=== PATIENT | female | born 1960 | race Caucasian/White ===

== ENCOUNTER → 2017-09-25 | Outpatient (CLI) | payer OTHER ==
[2017-09-25 07:44] LABS: ABSOLUTE EOSINOPHILS 0.1 thou/uL (0.0-0.7); ABSOLUTE LYMPHOCYTES 1.6 thou/uL (0.8-5.3); ABSOLUTE MONOCYTES 0.7 thou/uL (0.0-1.2); ABSOLUTE NEUTROPHILS 3.4 thou/uL (1.6-8.1); BASOPHILS 0.6 %; EOSINOPHILS 1.7 %; HEMATOCRIT 40.2 % (37.0-47.0); HEMOGLOBIN 13.3 gm/dL (12.0-15.0); LYMPHOCYTES 27.8 %; MCH 27.6 pg (26.0-34.0); MCHC 33.1 g/dL (28.0-37.0); MCV 83.5 fL (80.0-100.0); MONOCYTES 12.2 %; MPV 8.1 fl. (7.2-11.1); NUCLEATED RBCS 0 /100WBC; PLATELET COUNT* 213 thou/uL (150-400); POLYS 57.7 %; RBC 4.81 mil/uL (4.20-5.00); RDW-CV 13.9 % (10.5-14.5); WBC 5.9 thou/uL (4.0-11.0)
[2017-09-25 07:54] LABS: ALBUMIN 3.8 g/dL (3.4-5.0); ALKALINE PHOSPHATASE 59 U/L (46-116); ANION GAP 10 mmol/L (7-16); BUN 28 mg/dL (7-18); CALCIUM 9.2 mg/dL (8.5-10.1); CHLORIDE 105 mmol/L (98-107); CHOLESTEROL 158 mg/dL (<200); CO2 25 mmol/L (21-32); CREATININE 1.1 mg/dL (0.6-1.3); GLUCOSE 128 mg/dL (70-99); HDL CHOLESTEROL 44 mg/dL (>40); LDL CHOLESTEROL 64 mg/dL (<100); POTASSIUM 3.7 mmol/L (3.5-5.1); SGOT 17 U/L (15-37); SGPT 23 U/L (30-65); SODIUM 140 mmol/L (136-145); TC:HDL 3.6 Ratio (Not establshd); TOTAL BILIRUBIN 0.5 mg/dL (<0.1-1.0); TRIGLYCERIDE 250 mg/dL (<150); VLDL 50 mg/dL (<40)
[2017-09-25 07:57] LABS: SERUM ASSESSMENT Clear
[2017-09-25 22:09] LABS: GLYCOHEMOGLOBIN (HGB A1C) 5.9 % (4.8-5.6)
== END ==
LOC: M.LAB 07:28
PROVIDERS: Family Medicine
DX: I10 Essential (primary) hypertension (principal); E78.2 Mixed hyperlipidemia; K21.9 Gastro-esophageal reflux disease without esophagitis; E11.9 Type 2 diabetes mellitus without complications

== ENCOUNTER → 2018-01-14 | Outpatient (CLI) | payer OTHER | LOC: M.RAD 09:39 | DX: Z12.31 Encounter for screening mammogram for malignant neoplasm of breast (principal) ==

== ENCOUNTER → 2018-05-26 | Outpatient (CLI) | payer OTHER ==
[2018-05-26 11:26] LABS: ABSOLUTE BASOPHILS 0.1 thou/uL (0.0-0.2); ABSOLUTE EOSINOPHILS 0.2 thou/uL (0.0-0.7); ABSOLUTE LYMPHOCYTES 1.5 thou/uL (0.8-5.3); ABSOLUTE MONOCYTES 0.6 thou/uL (0.0-1.2); ABSOLUTE NEUTROPHILS 2.8 thou/uL (1.6-8.1); BASOPHILS 1.3 %; EOSINOPHILS 3.2 %; HEMATOCRIT 42.4 % (37.0-47.0); HEMOGLOBIN 13.9 gm/dL (12.0-15.0); LYMPHOCYTES 28.8 %; MCH 27.5 pg (26.0-34.0); MCHC 32.8 g/dL (28.0-37.0); MCV 83.9 fL (80.0-100.0); MONOCYTES 12.1 %; MPV 8.2 fl. (7.2-11.1); NUCLEATED RBCS 0 /100WBC; PLATELET COUNT* 260 thou/uL (150-400); POLYS 54.6 %; RBC 5.06 mil/uL (4.20-5.00); RDW-CV 13.8 % (10.5-14.5); WBC 5.1 thou/uL (4.0-11.0)
[2018-05-26 13:40] LABS: ALBUMIN 3.8 g/dL (3.4-5.0); ALKALINE PHOSPHATASE 68 U/L (46-116); ANION GAP 9 mmol/L (7-16); BUN 24 mg/dL (7-18); CALCIUM 9.5 mg/dL (8.5-10.1); CHLORIDE 103 mmol/L (98-107); CHOLESTEROL 216 mg/dL (<200); CO2 27 mmol/L (21-32); CREATININE 1.2 mg/dL (0.6-1.3); GLUCOSE 121 mg/dL (70-99); HDL CHOLESTEROL 43 mg/dL (>40); LDL CHOLESTEROL 109 mg/dL (<100); POTASSIUM 4.1 mmol/L (3.5-5.1); SERUM ASSESSMENT Clear; SGOT 24 U/L (15-37); SGPT 30 U/L (30-65); SODIUM 139 mmol/L (136-145); TOTAL BILIRUBIN 0.5 mg/dL (<0.1-1.0); TOTAL PROTEIN 7.1 g/dL (6.4-8.2); TRIGLYCERIDE 322 mg/dL (<150); VLDL 64 mg/dL (<40)
[2018-05-26 23:08] LABS: GLYCOHEMOGLOBIN (HGB A1C) 6.2 % (4.8-5.6)
== END ==
LOC: M.LAB 11:03
PROVIDERS: Family Medicine
DX: I10 Essential (primary) hypertension (principal); E11.9 Type 2 diabetes mellitus without complications; E78.2 Mixed hyperlipidemia

== ENCOUNTER 2018-11-05 22:13 | Emergency (ER) | payer OTHER ==
[~2018-11-05] VITALS: Ht 165.1 cm; Wt 108.9 kg
[2018-11-05] MEDS ORDERED: LISINOPRIL20 MG PO (22:40)
[2018-11-05] MEDS ORDERED: PIOGLITAZONE15 MG (22:40)
[2018-11-05] MEDS ORDERED: LASIX 40 MG TAB40 M2 PO (22:40)
[2018-11-05] MEDS ORDERED: PROCARDIA XL60 MG PO (22:40)
[2018-11-05] MEDS ORDERED: ATENOLOL 100MG100 MG PO (22:40)
[2018-11-05] MEDS ORDERED: IMVEXXY10 MCG (22:41)
[2018-11-06] MEDS ORDERED: ZOFRAN ODT4 MG PO (01:03)
[2018-11-06 01:08] VITALS: BP 122/74
== END 2018-11-06 01:08 | disposition home or self-care (01) ==
LOC: M.ERS 22:13
DX: T38.5X1A Poisoning by other estrogens and progestogens, accidental (unintentional), initial encounter (principal); I10 Essential (primary) hypertension; E11.9 Type 2 diabetes mellitus without complications; Y92.89 Other specified places as the place of occurrence of the external cause

== ENCOUNTER → 2018-11-13 | Outpatient (CLI) | payer OTHER ==
[~2018-11-13] MED LIST: ATENOLOL 100MG100 MG PO; IMVEXXY10 MCG; LASIX 40 MG TAB40 M2 PO; LISINOPRIL20 MG PO; PIOGLITAZONE15 MG; PROCARDIA XL60 MG PO; ZOFRAN ODT4 MG PO
[2018-11-13 08:13] LABS: ABSOLUTE EOSINOPHILS 0.1 thou/uL (0.0-0.7); ABSOLUTE LYMPHOCYTES 1.2 thou/uL (0.8-5.3); ABSOLUTE MONOCYTES 0.7 thou/uL (0.0-1.2); ABSOLUTE NEUTROPHILS 2.8 thou/uL (1.6-8.1); BASOPHILS 0.6 %; EOSINOPHILS 2.1 %; HEMATOCRIT 39.5 % (37.0-47.0); HEMOGLOBIN 13.2 gm/dL (12.0-15.0); LYMPHOCYTES 24.9 %; MCH 28.4 pg (26.0-34.0); MCHC 33.5 g/dL (28.0-37.0); MCV 84.9 fL (80.0-100.0); MONOCYTES 13.9 %; MPV 8.3 fl. (7.2-11.1); NUCLEATED RBCS 0 /100WBC; PLATELET COUNT* 225 thou/uL (150-400); POLYS 58.5 %; RBC 4.65 mil/uL (4.20-5.00); RDW-CV 13.6 % (10.5-14.5); WBC 4.8 thou/uL (4.0-11.0)
[2018-11-13 08:20] LABS: ALBUMIN 3.7 g/dL (3.4-5.0); ALKALINE PHOSPHATASE 62 U/L (46-116); ANION GAP 10 mmol/L (7-16); BUN 45 mg/dL (7-18); CALCIUM 9.4 mg/dL (8.5-10.1); CHLORIDE 106 mmol/L (98-107); CHOLESTEROL 182 mg/dL (<200); CO2 25 mmol/L (21-32); CREATININE 1.3 mg/dL (0.6-1.3); GLUCOSE 127 mg/dL (70-99); HDL CHOLESTEROL 43 mg/dL (>40); LDL CHOLESTEROL 89 mg/dL (<100); POTASSIUM 4.4 mmol/L (3.5-5.1); SGOT 17 U/L (15-37); SGPT 28 U/L (30-65); SODIUM 141 mmol/L (136-145); TC:HDL 4.2 Ratio (Not establshd); TOTAL BILIRUBIN 0.3 mg/dL (<0.1-1.0); TOTAL PROTEIN 7.2 g/dL (6.4-8.2); TRIGLYCERIDE 251 mg/dL (<150); VLDL 50 mg/dL (<40)
[2018-11-13 08:22] LABS: SERUM ASSESSMENT Clear
[2018-11-14 09:07] LABS: GLYCOHEMOGLOBIN (HGB A1C) 6.1 % (4.8-5.6)
== END ==
LOC: M.LAB 07:43
PROVIDERS: Family Medicine
DX: E11.9 Type 2 diabetes mellitus without complications (principal); I10 Essential (primary) hypertension; E78.5 Hyperlipidemia, unspecified

== ENCOUNTER 2019-01-02 10:24 | Emergency (ER) | payer OTHER ==
[~2019-01-02] VITALS: Ht 162.6 cm; Wt 113.4 kg
[2019-01-02] MEDS ORDERED: NAPROSYN500 MG PO (11:54)
[2019-01-02] MEDS ORDERED: ROBAXIN 750 MG750 MG PO (11:54)
[2019-01-02] MEDS ORDERED: ACETAMINOPHEN-1 EAC1 PO (11:54)
[2019-01-02 12:54] VITALS: BP 134/98
== END 2019-01-02 12:55 | disposition home or self-care (01) ==
LOC: M.ERS 10:24
DX: R51 Headache (principal); M54.2 Cervicalgia; R10.2 Pelvic and perineal pain; I10 Essential (primary) hypertension; E11.9 Type 2 diabetes mellitus without complications; Z79.899 Other long term (current) drug therapy; W07.XXXA Fall from chair, initial encounter; Y93.89 Activity, other specified; Y92.89 Other specified places as the place of occurrence of the external cause; Y99.8 Other external cause status

== ENCOUNTER → 2019-03-20 | Outpatient (CLI) | payer OTHER ==
[~2019-03-20] MED LIST changes: +ACETAMINOPHEN-1 EAC1 PO; +NAPROSYN500 MG PO; +ROBAXIN 750 MG750 MG PO
== END ==
LOC: M.RAD 10:00
DX: Z12.31 Encounter for screening mammogram for malignant neoplasm of breast (principal)

== ENCOUNTER → 2019-05-25 | Outpatient (CLI) | payer OTHER ==
[2019-05-25 07:59] LABS: ABSOLUTE BASOPHILS 0.1 thou/uL (0.0-0.2); ABSOLUTE EOSINOPHILS 0.1 thou/uL (0.0-0.7); ABSOLUTE LYMPHOCYTES 1.4 thou/uL (0.8-5.3); ABSOLUTE MONOCYTES 0.7 thou/uL (0.0-1.2); ABSOLUTE NEUTROPHILS 2.8 thou/uL (1.6-8.1); BASOPHILS 1.2 %; EOSINOPHILS 2.2 %; HEMATOCRIT 39.2 % (37.0-47.0); HEMOGLOBIN 13.2 gm/dL (12.0-15.0); LYMPHOCYTES 28.3 %; MCH 28.5 pg (26.0-34.0); MCHC 33.8 g/dL (28.0-37.0); MCV 84.4 fL (80.0-100.0); MONOCYTES 13.8 %; MPV 7.4 fl. (7.2-11.1); NUCLEATED RBCS 0 /100WBC; PLATELET COUNT* 241 thou/uL (150-400); POLYS 54.5 %; RBC 4.64 mil/uL (4.20-5.00); RDW-CV 13.6 % (10.5-14.5); WBC 5.1 thou/uL (4.0-11.0)
[2019-05-25 08:02] LABS: URINE BILIRUBIN NEGATIVE (Negative); URINE BLOOD NEGATIVE (Negative); URINE CLARITY CLEAR; URINE COLOR YELLOW; URINE GLUCOSE-RANDOM NEGATIVE (Negative); URINE KETONES NEGATIVE (Negative); URINE LEUKOCYTES NEGATIVE (Negative); URINE NITRITE NEGATIVE (Negative); URINE PROTEIN NEGATIVE (Negative); URINE SPECIFIC GRAVITY 1.015 (1.005-1.030); URINE UROBILINOGEN 0.2 E.U./dl (0.2-1.0)
[2019-05-25 08:24] LABS: ALBUMIN 3.9 g/dL (3.4-5.0); ALKALINE PHOSPHATASE 74 U/L (46-116); ANION GAP 11 mmol/L (7-16); BUN 33 mg/dL (7-18); CALCIUM 8.7 mg/dL (8.5-10.1); CHLORIDE 103 mmol/L (98-107); CHOLESTEROL 229 mg/dL (<200); CO2 27 mmol/L (21-32); CREATININE 1.5 mg/dL (0.6-1.3); GLUCOSE 120 mg/dL (70-99); HDL CHOLESTEROL 31 mg/dL (>40); LDL CHOLESTEROL ND mg/dL (<100); POTASSIUM 4.1 mmol/L (3.5-5.1); SGOT 18 U/L (15-37); SGPT 28 U/L (30-65); SODIUM 141 mmol/L (136-145); TC:HDL 7.4 Ratio (Not establshd); TOTAL BILIRUBIN 0.5 mg/dL (<0.1-1.0); TRIGLYCERIDE 656 mg/dL (<150); VLDL 131 mg/dL (<40)
[2019-05-25 08:28] LABS: SERUM ASSESSMENT Slight Lipemia
[2019-05-25 23:06] LABS: GLYCOHEMOGLOBIN (HGB A1C) 5.9 % (4.8-5.6)
== END ==
LOC: M.LAB 07:38
PROVIDERS: Family Medicine
DX: E11.9 Type 2 diabetes mellitus without complications (principal); I10 Essential (primary) hypertension; E78.5 Hyperlipidemia, unspecified; Z68.41 Body mass index [BMI] 40.0-44.9, adult

== ENCOUNTER → 2019-09-01 | Outpatient (CLI) | payer OTHER ==
--- NOTE | 2019-09-01 10:57 | 2DMMODE ---
[place] [address] 2 D/M-MODE ECHOCARDIOGRAM Name: MADDISON PECK Room: [facility]#: [id number] Admission: 09/01/19 Attend Phys: Benji Miranda, Discharge: Date of : 56 Date of Service: 09/01/19 1055 Report #: [id number] THIS REPORT FOR: cc: Argelia Cheema Maggie M. DO Liston, Michael J. MD [facility] ~ APPROVED REPORT Study performed: 09/01/2019 07:54:44 EXAM: Comprehensive 2D, Doppler, and color-flow Echocardiogram BSA: 2.21 HR: 90 bpm BP: 130/90 mmHg Other Information Study Quality: Fair Indications Atrial Fibrillation 2D Dimensions IVSd: 12.54 (7-11mm) LVOT Diam: 18.97 (18-24mm) LVDd: 46.71 mm PWd: 10.94 (7-11mm) Ascending Ao: 34.73 (22-36mm) LVDs: 32.78 (25-40mm) Aortic Root: 28.29 mm Volumes Left Atrial Volume (Systole) LA ESV Index: 27.30 mL/m2 Aortic Valve AoV Peak Anthony.: 1.38 m/s AO Peak Gr.: 7.66 mmHg LVOT Max P.96 mmHg AO Mean Gr.: 4.19 mmHg LVOT Mean P.47 mmHg LVOT Max V: 0.86 m/s AO V2 VTI: 27.01 cm LVOT Mean V: 0.56 m/s SHANE (VTI): 1.71 cm2 LVOT V1 VTI: 16.38 cm Mitral Valve MV Decel. Time: 122.72 ms MV PHT: 35.59 [place] [address] 2 D/M-MODE ECHOCARDIOGRAM Name: MADDISON PECK Room: [facility]#: [id number] Admission: 09/01/19 Attend Phys: Benji Miranda, Discharge: Date of : 56 Date of Service: 09/01/19 1055 Report #: [id number] MVA (PHT): 6.18 cm2 TDI Medial E' Anthony.: 0.11 m/s Lateral E' Anthony.: 0.11 m/s Pulmonary Valve PV Peak Anthony.: 0.81 m/s PV Peak Gr.: 2.63 mmHg Tricuspid Valve RAP Estimate: 20.00 mmHg TR Peak Gr.: 24.62 mmHg RVSP: 44.62 mmHg PA Pressure: 44.62 mmHg Left Ventricle The left ventricle is normal size. There is normal LV segmental wall motion. There is normal left ventricular wall thickness. Left ventricular systolic function is normal. LVEF is 60-65%. This study is not technically sufficient to allow evaluation of the LV diastolic function due to atrial fibrillation. Right Ventricle The right ventricle is normal size. The right ventricular systolic function is normal. Atria The left atrium size is normal. The right atrium size is normal. Aortic Valve The Aortic valve is sclerotic. Trace aortic regurgitation. There is no aortic valvular stenosis. Mitral Valve There is mitral annular calcification. Trace mitral regurgitation. No evidence of mitral valve stenosis. Tricuspid Valve The tricuspid valve is normal in structure. Mild tricuspid regurgitation. No pulmonary hypertension. Pulmonic Valve The pulmonary valve is normal in structure. There is no pulmonic valvular regurgitation[place] [address] 2 D/M-MODE ECHOCARDIOGRAM Name: MADDISON PECK Room: [facility]#: [id number] Admission: 09/01/19 Attend Phys: Benji Miranda, Discharge: Date of : 56 Date of Service: 09/01/19 1055 Report #: [id number] The aortic root is normal in size. IVC is dilated and collapses >50% with inspiration. Pericardium There is no pericardial effusion. <Conclusion> The left ventricle is normal size. There is normal left ventricular wall thickness. Left ventricular systolic function is normal. LVEF is 60-65%. This study is not technically sufficient to allow evaluation of the LV diastolic function due to atrial fibrillation. Trace aortic regurgitation. Trace mitral regurgitation. Mild tricuspid regurgitation. No pulmonary hypertension. IVC is dilated and collapses >50% with inspiration. <ELECTRONICALLY SIGNED> By: Benji Miranda MD, FACC 09/01/19 1055 54 54 Benji Miranda MD, FACC /INF
== END ==
LOC: M.CRD 07:57
DX: I08.3 Combined rheumatic disorders of mitral, aortic and tricuspid valves (principal); I48.19 Other persistent atrial fibrillation

== ENCOUNTER → 2019-10-06 | Outpatient (CLI) | payer OTHER ==
[2019-10-06] VITALS (8 sets, daily range): BP systolic 102–136; BP diastolic 45–81
[~2019-10-06] MED LIST changes: +ELIQUIS5 MG PO; +FLECAINIDE ACET50 M2 PO
[2019-10-06 10:18] LABS: HEMATOCRIT 38.3 % (37.0-47.0); HEMOGLOBIN 12.7 gm/dL (12.0-15.0); MCH 27.9 pg (26.0-34.0); MCHC 33.2 g/dL (28.0-37.0); RBC 4.56 mil/uL (4.20-5.00); WBC 5.5 thou/uL (4.0-11.0)
[2019-10-06 10:27] LABS: CALCIUM 9.2 mg/dL (8.5-10.1); CREATININE 1.5 mg/dL (0.6-1.3); POTASSIUM 4.2 mmol/L (3.5-5.1)
[2019-10-06 10:32] LABS: TOTAL BILIRUBIN 0.5 mg/dL (<0.1-1.0); TOTAL PROTEIN 7.2 g/dL (6.4-8.2)
--- NOTE | 2019-10-06 15:32 | EKG ---
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1960 Requested By: Benji Miranda Order Number: [id number] Ricardo MD: Bayron Mayer Measurements Intervals [place] Rate: 55 P: 41 AK: 179 QRS: 34 QRSD: 98 T: 33 QT: 430 QTc: 412 Interpretive Statements Sinus rhythm Probable left atrial enlargement Abnormal R-wave progression, early transition No previous ECG available for comparison Electronically Signed On 10-06-2019 15:30:31 CDT by Bayron Mayer [email or web address] <ELECTRONICALLY SIGNED> By: Bayron Mayer MD, [facility] 10/06/19 1530 1057 1057 Bayron Mayer MD, FAC /EPI
--- NOTE | 2019-10-08 16:12 | CARD ---
[address] [address] CARDIAC CATH REPORT Name: MADDISON PECK Room: [facility]#: [id number] Admission: 10/06/19 Attend Phys: Benji Miranda MD Discharge: Date of : 56 Report #: [id number] THIS REPORT FOR: //name// cc: Argelia Cheema Maggie M. DO ~ CC: Argelia Veliz DATE OF SERVICE: 10/06/2019 PROCEDURE: DC cardioversion. INDICATION: Persistent atrial fibrillation. DESCRIPTION OF PROCEDURE: After informed consent was obtained, the patient was brought to the cardiac holding area. The patient was given 75 mg of fentanyl and 3 mg of Versed intravenously for conscious sedation. Once the patient was adequately sedated, she was cardioverted from atrial fibrillation to normal sinus rhythm with a single biphasic shock of 300 joules. The patient tolerated the procedure well without complication. IMPRESSION: 1. Persistent atrial fibrillation. 2. Successful direct current cardioversion to sinus rhythm. <ELECTRONICALLY SIGNED> By: Benji Miranda MD, [facility] 10/08/19 1612 1021 [id number] Miranda MD, FACC /nt
== END | disposition home or self-care (01) ==
LOC: M.CL 09:16
PROVIDERS: Internal Medicine Cardiovascular Disease
DX: I48.19 Other persistent atrial fibrillation (principal); Z79.899 Other long term (current) drug therapy; Z79.01 Long term (current) use of anticoagulants

== ENCOUNTER → 2019-10-23 | Outpatient (CLI) | payer OTHER ==
[2019-10-23 11:01] LABS: URINE BILIRUBIN NEGATIVE (Negative); URINE BLOOD NEGATIVE (Negative); URINE CLARITY CLEAR; URINE COLOR STRAW; URINE GLUCOSE-RANDOM NEGATIVE (Negative); URINE KETONES NEGATIVE (Negative); URINE LEUKOCYTES-REFLEX NEGATIVE (Negative); URINE NITRITE-REFLEX NEGATIVE (Negative); URINE PROTEIN NEGATIVE (Negative); URINE SPECIFIC GRAVITY 1.015 (1.005-1.030); URINE UROBILINOGEN 0.2 E.U./dl (0.2-1.0)
[2019-10-23 11:11] LABS: ALKALINE PHOSPHATASE 44 U/L (46-116); ANION GAP 5 mmol/L (7-16); BUN 45 mg/dL (7-18); CALCIUM 9.3 mg/dL (8.5-10.1); CHLORIDE 103 mmol/L (98-107); CHOLESTEROL 144 mg/dL (<200); CO2 32 mmol/L (21-32); CREATININE 1.8 mg/dL (0.6-1.3); GLUCOSE 98 mg/dL (70-99); HDL CHOLESTEROL 55 mg/dL (>40); LDL CHOLESTEROL 68 mg/dL (<100); SGOT 19 U/L (15-37); SGPT 21 U/L (30-65); SODIUM 140 mmol/L (136-145); TC:HDL 2.6 Ratio (Not establshd); TOTAL BILIRUBIN 0.4 mg/dL (<0.1-1.0); TOTAL PROTEIN 7.6 g/dL (6.4-8.2); TRIGLYCERIDE 105 mg/dL (<150); VLDL 21 mg/dL (<40)
[2019-10-23 11:12] LABS: SERUM ASSESSMENT Clear
[2019-10-23 23:08] LABS: GLYCOHEMOGLOBIN (HGB A1C) 6.1 % (4.8-5.6)
== END ==
LOC: M.LAB 10:30
PROVIDERS: Family Medicine
DX: E11.9 Type 2 diabetes mellitus without complications (principal); R89.9 Unspecified abnormal finding in specimens from other organs, systems and tissues

== ENCOUNTER → 2019-11-12 | Outpatient (CLI) | payer OTHER | LOC: M.CT 08:00 | PROVIDERS: ATTEND Internal Medicine Cardiovascular Disease | DX: Z13.6 Encounter for screening for cardiovascular disorders (principal) ==

== ENCOUNTER → 2019-11-30 | Outpatient (CLI) | payer OTHER ==
[2019-11-30 08:38] LABS: ABSOLUTE BASOPHILS 0.1 thou/uL (0.0-0.2); ABSOLUTE EOSINOPHILS 0.1 thou/uL (0.0-0.7); ABSOLUTE LYMPHOCYTES 1.5 thou/uL (0.8-5.3); ABSOLUTE MONOCYTES 0.8 thou/uL (0.0-1.2); EOSINOPHILS 2.5 %; HEMATOCRIT 40.5 % (37.0-47.0); HEMOGLOBIN 13.4 gm/dL (12.0-15.0); LYMPHOCYTES 27.5 %; MCH 28.1 pg (26.0-34.0); MCHC 33.2 g/dL (28.0-37.0); MCV 84.5 fL (80.0-100.0); MONOCYTES 14.2 %; MPV 7.5 fl. (7.2-11.1); NUCLEATED RBCS 0 /100WBC; PLATELET COUNT* 264 thou/uL (150-400); POLYS 54.8 %; RBC 4.79 mil/uL (4.20-5.00); RDW-CV 13.9 % (10.5-14.5); WBC 5.5 thou/uL (4.0-11.0)
[2019-11-30 09:08] LABS: TOTAL PROTEIN 7.6 g/dL (6.4-8.2)
[2019-11-30 09:09] LABS: ALBUMIN 4.3 g/dL (3.4-5.0); CALCIUM 9.4 mg/dL (8.5-10.1); CREATININE 1.9 mg/dL (0.6-1.3); POTASSIUM 3.9 mmol/L (3.5-5.1); TOTAL BILIRUBIN 0.5 mg/dL (<0.1-1.0)
== END ==
LOC: M.LAB 07:00 → M.CT 08:00 → M.LAB 08:16
PROVIDERS: ATTEND Internal Medicine Cardiovascular Disease
DX: I48.91 Unspecified atrial fibrillation (principal)

== ENCOUNTER → 2019-12-30 | Outpatient (CLI) | payer OTHER ==
--- NOTE | 2020-02-19 12:11 | SLEEP ---
[address] [address] SLEEP STUDY REPORT Name: BRADY PECKMY Austin Room: [facility]#: [id number] Admission: 12/30/19 Attend Phys: Argelia Cheema DO Discharge: Date of : 56 Report #: [id number] THIS REPORT FOR: //name// CC: Argelia Cheema This study has been reviewed in its entirety by a board certified sleep specialist DATE OF SERVICE: 01/01/2020 INDICATION FOR SLEEP STUDY: Excessive daytime sleepiness. TYPE OF SLEEP STUDY PERFORMED: Home sleep study. INTERPRETATION: Total duration of the study is 424 minutes. During this time period, we recorded multiple sleep related respiratory events. These included, 446 obstructive apneas in addition to 172 hypopneas. There were no mixed apneas or central apneas recorded. The overall apnea-hypopnea index was 88.3 consistent with severe obstructive sleep apnea. Body position data indicates the patient was lying on the right side throughout this sleep study. We also recorded multiple desaturations. The patient's O2 saturation was less than 90% for 217 minutes out of which 117 minutes were spent an O2 saturation less than 85%. Mean heart rate was 67. Upon review of the tracings from the pulse oximetry, it is noted that desaturations occurred in 3 distinct episodes during the night. This is consistent with a REM associated obstructive sleep apnea. IMPRESSION: 1. Severe obstructive sleep apnea with an apnea-hypopnea index of 88.3. 2. Marked nocturnal hypoxemia. The patient's O2 saturation was less than 90% for 217 minutes during the sleep study. 3. The patient is noted to be on the right side throughout the sleep study. 4. Pattern of O2 saturations suggests REM associated severe obstructive sleep apnea. RECOMMENDATIONS: 1. I would recommend proceeding with an in-lab sleep study for positive airway pressure titration. 2. If clinically appropriate, then consider weight loss. 3. Recommend avoiding driving or other activities requiring vigilance if drowsy. This entire sleep study was reviewed by board certified sleep physician. <ELECTRONICALLY SIGNED> By: Paddy Kowalski MD 02/19/20 1211 1144 [id number] Kowalski MD /nt
== END ==
LOC: M.SLEEPLAB 07-24 12:00
PROVIDERS: ATTEND Family Medicine
DX: G47.33 Obstructive sleep apnea (adult) (pediatric) (principal)

== ENCOUNTER → 2020-01-15 | Outpatient (CLI) | payer OTHER ==
[2020-01-15 07:45] LABS: ABSOLUTE EOSINOPHILS 0.2 thou/uL (0.0-0.7); ABSOLUTE MONOCYTES 0.9 thou/uL (0.0-1.2); ABSOLUTE NEUTROPHILS 3.2 thou/uL (1.6-8.1); BASOPHILS 0.6 %; HEMATOCRIT 35.9 % (37.0-47.0); HEMOGLOBIN 12.6 gm/dL (12.0-15.0); LYMPHOCYTES 19.5 %; MCH 32.7 pg (26.0-34.0); MCV 93.5 fL (80.0-100.0); MONOCYTES 16.7 %; MPV 8.1 fl. (7.2-11.1); NUCLEATED RBCS 0 /100WBC; PLATELET COUNT* 255 thou/uL (150-400); POLYS 60.2 %; RBC 3.84 mil/uL (4.20-5.00); RDW-CV 14.7 % (10.5-14.5); WBC 5.3 thou/uL (4.0-11.0)
[2020-01-15 08:04] LABS: ALBUMIN 3.9 g/dL (3.4-5.0); CALCIUM 9.3 mg/dL (8.5-10.1); CREATININE 1.6 mg/dL (0.6-1.3); POTASSIUM 4.6 mmol/L (3.5-5.1); TOTAL BILIRUBIN 0.4 mg/dL (<0.1-1.0); TOTAL PROTEIN 7.4 g/dL (6.4-8.2); URIC ACID* 6.5 mg/dL (2.6-7.2)
[2020-01-15 08:14] LABS: CALCIUM 9.2 mg/dL (8.5-10.1); CREATININE 1.7 mg/dL (0.6-1.3)
[2020-01-15 08:17] LABS: URINE BILIRUBIN NEGATIVE (Negative); URINE BLOOD NEGATIVE (Negative); URINE CLARITY CLEAR; URINE COLOR YELLOW; URINE GLUCOSE-RANDOM NEGATIVE (Negative); URINE KETONES NEGATIVE (Negative); URINE LEUKOCYTES NEGATIVE (Negative); URINE NITRITE NEGATIVE (Negative); URINE PROTEIN NEGATIVE (Negative); URINE UROBILINOGEN 0.2 E.U./dl (0.2-1.0)
[2020-01-16 02:06] LABS: COMPLEMENT-C4 27 mg/dL (14-44); IgA 100 mg/dL (87-352); IgG 788 mg/dL (586-1602); IgM 173 mg/dL (26-217)
[2020-01-16 05:07] LABS: HEPATITIS B SURFACE AG Negative (Negative)
== END ==
LOC: M.ULTRA 07:10
PROVIDERS: ATTEND Internal Medicine Nephrology
DX: N18.3 Chronic kidney disease, stage 3 (moderate) (principal)

== ENCOUNTER → 2020-04-12 | Outpatient (CLI) | payer OTHER ==
[2020-04-12 08:26] LABS: ABSOLUTE EOSINOPHILS 0.1 thou/uL (0.0-0.7); ABSOLUTE LYMPHOCYTES 1.1 thou/uL (0.8-5.3); ABSOLUTE MONOCYTES 0.6 thou/uL (0.0-1.2); ABSOLUTE NEUTROPHILS 2.5 thou/uL (1.6-8.1); BASOPHILS 0.5 %; EOSINOPHILS 1.8 %; HEMATOCRIT 35.6 % (37.0-47.0); HEMOGLOBIN 11.6 gm/dL (12.0-15.0); LYMPHOCYTES 26.3 %; MCH 28.4 pg (26.0-34.0); MCHC 32.5 g/dL (28.0-37.0); MCV 87.2 fL (80.0-100.0); MONOCYTES 14.7 %; MPV 7.3 fl. (7.2-11.1); NUCLEATED RBCS 0 /100WBC; PLATELET COUNT* 242 thou/uL (150-400); POLYS 56.7 %; RBC 4.08 mil/uL (4.20-5.00); RDW-CV 13.9 % (10.5-14.5); WBC 4.3 thou/uL (4.0-11.0)
[2020-04-12 08:41] LABS: URINE BILIRUBIN NEGATIVE (Negative); URINE BLOOD NEGATIVE (Negative); URINE CLARITY CLEAR; URINE COLOR YELLOW; URINE GLUCOSE-RANDOM NEGATIVE (Negative); URINE KETONES NEGATIVE (Negative); URINE LEUKOCYTES-REFLEX 1+ (Negative); URINE NITRITE-REFLEX NEGATIVE (Negative); URINE PROTEIN NEGATIVE (Negative); URINE UROBILINOGEN 0.2 E.U./dl (0.2-1.0)
[2020-04-12 08:50] LABS: ALBUMIN 3.8 g/dL (3.4-5.0); ALKALINE PHOSPHATASE 41 U/L (46-116); ANION GAP 7 mmol/L (7-16); BUN 35 mg/dL (7-18); CHLORIDE 104 mmol/L (98-107); CHOLESTEROL 150 mg/dL (<200); CO2 28 mmol/L (21-32); CREATININE 1.6 mg/dL (0.6-1.3); GLUCOSE 119 mg/dL (70-99); HDL CHOLESTEROL 56 mg/dL (>40); LDL CHOLESTEROL 74 mg/dL (<100); POTASSIUM 4.8 mmol/L (3.5-5.1); SGOT 21 U/L (15-37); SGPT 25 U/L (30-65); SODIUM 139 mmol/L (136-145); TC:HDL 2.7 Ratio (Not establshd); TOTAL BILIRUBIN 0.4 mg/dL (<0.1-1.0); TOTAL PROTEIN 7.4 g/dL (6.4-8.2); TRIGLYCERIDE 102 mg/dL (<150); VLDL 20 mg/dL (<40)
[2020-04-12 08:55] LABS: SERUM ASSESSMENT Clear
[2020-04-12 09:30] LABS: BACTERIA-REFLEX 1-9 Few /HPF (None Seen); CASTS None Seen /LPF (None Seen); CRYSTALS None Seen /LPF (None Seen); MUCUS None Seen strn/LPF (None Seen); SQUAMOUS 4-10 Moderate /LPF (0-3); URINE RBC 3-10 Few /HPF (0-2); URINE WBC-REFLEX 0-5 Rare /HPF (0-5)
[2020-04-13 02:06] LABS: GLYCOHEMOGLOBIN (HGB A1C) 5.7 % (4.8-5.6)
== END ==
LOC: M.LAB 07:54
PROVIDERS: ATTEND Internal Medicine Nephrology
DX: E11.22 Type 2 diabetes mellitus with diabetic chronic kidney disease (principal); N18.30 Chronic kidney disease, stage 3 unspecified; R89.9 Unspecified abnormal finding in specimens from other organs, systems and tissues

== ENCOUNTER → 2020-05-13 | Outpatient (CLI) | payer OTHER ==
--- NOTE | ~2020-05-13 | SLEEP ---
[address] [address] SLEEP STUDY REPORT Name: MADDISON PECK Room: [facility].#: [id number] Admission: 05/13/20 Attend Phys: Argelia Cheema DO Discharge: Date of : 56 Report #: [id number] THIS REPORT FOR: cc: Argelia Cheema Maggie M. DO ~ Paddy Kowalski MD This study has been reviewed in its entirety by a board certified sleep specialist DATE OF SERVICE: 05/13/2020 SLEEP STUDY INDICATION FOR SLEEP STUDY: Excessive daytime sleepiness with severe obstructive sleep apnea detected by Home sleep study. INTERPRETATION: Total duration of the study is 386 minutes out of which she was asleep for only 89 minutes with an overall sleep efficiency markedly decreased to only 23%. Sleep onset initially occurred around 18 minutes after lying down in bed and REM onset was delayed to 178 minutes after sleep onset. N1 sleep duration was 28%, N2 duration was 48%, N3 duration was 12% and REM duration was 2%. This is a split night sleep study. During the initial part of the sleep study, the patient was not on positive airway pressure therapy for 110 minutes. This included only 15 minutes of sleep time. The entire duration was in non-REM sleep. The patient, however, did have multiple sleep-related respiratory events recorded; 10 obstructive apneas in addition to 22 hypopneas. The overall apnea-hypopnea index was very high at 128. Body position data indicates that the only 1.4 minutes of supine sleep was recorded. The rest of the time, the patient was in the right side during the diagnostic portion of the sleep study. Mean heart rate at this time was 68. The limb movement index was elevated to 72. Most limb movements, however, were not associated with arousals. Arousal index was markedly elevated to 192 and severe sleep fragmentation was observed. The patient was subsequently placed on positive airway pressure therapy was observed in positive airway pressure therapy for 276 minutes, this included 74 minutes of sleep time, which in turn included only 2 minutes of REM sleep. Body position data indicates that the patient was noted to sleep for about 74 minutes while on positive airway pressure therapy. Limb movement index improved, but still remained elevated to 49.7. Mean heart rate remained around 59. Arousal index remained [place] [address] [address] SLEEP STUDY REPORT Name: CISCOMADDISONMY CLEMONS [facility] [id number] Admission: 05/13/20 Attend Phys: Argelia Cheema DO Discharge: Date of : 56 Report #: [id number] Review of the positive airway pressure titration indicates the patient was initially placed on CPAP. The patient, however, continued to remain hypoxemic and also had multiple sleep related respiratory events while on CPAP therapy. The patient was therefore switched over to a BiPAP. The patient was awake for most of the duration of time that she was on BiPAP and therefore adequate evaluation of the patient's optimal BiPAP pressures could not occur during the sleep study. The patient did, however, remain hypoxemic even with the BiPAP in place with O2 saturations dropping at times up to 81% with a BiPAP in place. IMPRESSION: 1. Very severe obstructive sleep apnea. The patient's apnea-hypopnea index was now calculated to be 129; however, the patient was mostly awake during the sleep study, but the apnea-hypopnea index on a home sleep study is also 88. 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 The patient did have 217 minutes below an O2 saturation of 90% during the home sleep study, I would expect her to be significantly hypoxemic in sustained sleep. 2. The patient failed CPAP therapy and requires BiPAP. The patient's optimal BiPAP pressures however could not be determined based on this sleep study. There appears likely that the patient will require oxygen in line with BiPAP. RECOMMENDATIONS: 1. I recommend proceeding to a repeat sleep study for BiPAP titration. During the repeat sleep study, I would recommend titrating EPAP to obstructive apneas and otherwise titrating ____ backup rate if indicated. If as expected, the patient remains hypoxemic despite optimal BiPAP titration, then recommend adding oxygen in line. 2. Recommend advising the patient to wake up early and stay awake the whole day prior to the next sleep study and avoid use of caffeine, so that an adequate total sleep time for an optimal BiPAP titration can be documented. If clinically appropriate, then the use of a hypnotic agent at the beginning of the next sleep study can also be considered. 3. If clinically appropriate, recommend weight loss. 4. Recommend avoiding driving or other activities requiring vigilance if drowsy. This entire sleep study was reviewed by board certified sleep physician. By: 41 [id number] Kowalski MD /nita
== END ==
LOC: M.SLEEPLAB 04-27 20:00
PROVIDERS: ATTEND Family Medicine
DX: G47.33 Obstructive sleep apnea (adult) (pediatric) (principal)

== ENCOUNTER → 2020-08-15 | Outpatient (CLI) | payer OTHER ==
[2020-08-15 09:47] LABS: ABSOLUTE EOSINOPHILS 0.1 thou/uL (0.0-0.7); ABSOLUTE LYMPHOCYTES 1.3 thou/uL (0.8-5.3); ABSOLUTE MONOCYTES 0.6 thou/uL (0.0-1.2); ABSOLUTE NEUTROPHILS 2.8 thou/uL (1.6-8.1); BASOPHILS 0.5 %; EOSINOPHILS 1.9 %; HEMOGLOBIN 11.5 gm/dL (12.0-15.0); LYMPHOCYTES 27.2 %; MCH 27.7 pg (26.0-34.0); MCHC 32.9 g/dL (28.0-37.0); MONOCYTES 12.6 %; MPV 7.6 fl. (7.2-11.1); NUCLEATED RBCS 0 /100WBC; PLATELET COUNT* 232 thou/uL (150-400); POLYS 57.8 %; RBC 4.17 mil/uL (4.20-5.00); RDW-CV 13.5 % (10.5-14.5); WBC 4.9 thou/uL (4.0-11.0)
[2020-08-15 09:49] LABS: URINE BILIRUBIN NEGATIVE (Negative); URINE BLOOD NEGATIVE (Negative); URINE CLARITY CLEAR; URINE COLOR YELLOW; URINE GLUCOSE-RANDOM NEGATIVE (Negative); URINE KETONES NEGATIVE (Negative); URINE LEUKOCYTES-REFLEX NEGATIVE (Negative); URINE NITRITE-REFLEX NEGATIVE (Negative); URINE PROTEIN NEGATIVE (Negative); URINE SPECIFIC GRAVITY >= 1.030 (1.005-1.030); URINE UROBILINOGEN 0.2 E.U./dl (0.2-1.0)
[2020-08-15 09:55] LABS: CALCIUM 9.8 mg/dL (8.5-10.1); CREATININE 1.5 mg/dL (0.6-1.3); POTASSIUM 4.3 mmol/L (3.5-5.1); TOTAL BILIRUBIN 0.4 mg/dL (<0.1-1.0); TOTAL PROTEIN 7.2 g/dL (6.4-8.2)
[2020-08-16 02:06] LABS: GLYCOHEMOGLOBIN (HGB A1C) 5.8 % (4.8-5.6)
== END ==
LOC: M.LAB 09:26
PROVIDERS: ATTEND Family Medicine
DX: R89.9 Unspecified abnormal finding in specimens from other organs, systems and tissues (principal); E11.9 Type 2 diabetes mellitus without complications; I10 Essential (primary) hypertension; D64.9 Anemia, unspecified; R53.82 Chronic fatigue, unspecified; Z68.42 Body mass index [BMI] 45.0-49.9, adult

== ENCOUNTER → 2020-08-19 | Outpatient (CLI) | payer OTHER ==
--- NOTE | 2020-09-06 08:43 | SLEEP ---
[address] [address] SLEEP STUDY REPORT Name: MADDISON PECK [facility] [id number] Admission: 08/19/20 Attend Phys: Argelia Cheema DO Discharge: Date of : 56 Report #: [id number] THIS REPORT FOR: cc: Argelia Cheema,Paddy Spence MD ~ This study has been reviewed in its entirety by a board certified sleep specialist DATE OF SERVICE: 08/19/2020 SLEEP STUDY INDICATION FOR SLEEP STUDY: Very severe obstructive sleep apnea. There is also evidence of failure of CPAP therapy during the last sleep study. INTERPRETATION: Total duration of the study is 442 minutes out of which she was asleep for only 254 minutes with an overall sleep efficiency markedly decreased to 57%. Sleep onset initially occurred 12 minutes after lying down in bed and REM onset was delayed to 214 minutes after sleep onset. Wake after sleep onset time was significantly elevated to 177 minutes. N1 sleep duration is 11%, N2 duration is 62%, N3 duration is 13% and REM duration is 14%. Periodic limb movement index is elevated to 56 with a periodic limb movement index with arousals being 31. This is a BiPAP titration. A review of the BiPAP titration indicates the patient was titrated beginning with a BiPAP of 9/5, gradually increasing it to 21/13. There is a favorable response to BiPAP therapy, in that only occasional central as well as obstructive apneas are occurring throughout this BiPAP titration; however, adequate control of the patient's sleep apnea is not achieved with any BiPAP pressure as multiple hypopneas continue to occur throughout this titration. There are also multiple desaturations occurring. Overall, the patient spent 26 minutes below an O2 saturation of 88%. It is, however, noted that the patient is awake for large durations of this sleep study and therefore, a significant number of hypopneas are in fact occurring close to sleep-wake transition. IMPRESSION: 1. At baseline, the patient has very severe obstructive sleep apnea during the previous sleep study, he also clearly failed CPAP therapy. 2. During this sleep study, there is a favorable response to BiPAP therapy and apneas are only occasional while on BiPAP. [place] [address] SLEEP STUDY REPORT Name: MADDISON PECK [facility] [id number] Admission: 08/19/20 Attend Phys: Argelia Cheema DO Discharge: Date of : 56 Report #: [id number] respirations; however, are not adequately controlled with any of the BiPAP pressures tried during the sleep study, in that hypopneas are frequent and continue to occur throughout the sleep study. Nocturnal hypoxemia also persists and desaturation also continued to occur on all BiPAP pressures. 3. The patient is awake for the large durations of the sleep study, which limits evaluation. Some of the hypopneas are close to sleep-wake transition. 4. There is periodic limb movement disorder as above; however, this likely is the result of and not the cause of his sleep disturbances. RECOMMENDATIONS: 1. Recommend proceeding with BiPAP therapy. Further details will be needed to evaluate the patient's optimal BiPAP pressures. For now, considering that most of the residual events are hypopneas, I recommend initially placing the patient on a BiPAP of 17/9 with a backup rate of 12 and oxygen 2 L in line with heated humidity and mask per the patient's preference while asleep. During this sleep study, a ResMed AirFit F20 medium-sized full face mask with a Bi-Flex of 3 was used. 2. After a few weeks of use of BiPAP with oxygen as above, I recommend obtaining a nocturnal pulse oximetry with the same being in place and then reevaluating BiPAP pressures. 3. If the patient is not already under the care of a recycler/sleep physician, then I recommend considering the same for further adjustment of the BiPAP pressures later. 4. If clinically appropriate, then recommend considering weight loss. 5. Recommend avoiding driving or other activities requiring vigilance, if drowsy. The patient's sleep study was reviewed by a board certified sleep physician. <ELECTRONICALLY SIGNED> By: Paddy Kowalski MD 09/06/20 0843 1837 [id number] Kowalski MD /nt
== END ==
LOC: M.SLEEPLAB 20:58
PROVIDERS: ATTEND Family Medicine
DX: G47.33 Obstructive sleep apnea (adult) (pediatric) (principal)

== ENCOUNTER → 2021-01-16 | Outpatient (CLI) | payer OTHER ==
[2021-01-16 08:48] LABS: RDW-CV 13.7 % (10.5-14.5)
[2021-01-16 08:49] LABS: URINE BILIRUBIN NEGATIVE (Negative); URINE BLOOD NEGATIVE (Negative); URINE CLARITY CLEAR; URINE COLOR YELLOW; URINE GLUCOSE-RANDOM NEGATIVE (Negative); URINE KETONES NEGATIVE (Negative); URINE LEUKOCYTES-REFLEX NEGATIVE (Negative); URINE NITRITE-REFLEX NEGATIVE (Negative); URINE PROTEIN NEGATIVE (Negative); URINE UROBILINOGEN 0.2 E.U./dl (0.2-1.0)
[2021-01-16 08:50] LABS: ABSOLUTE BASOPHILS 0.1 thou/uL (0.0-0.2); ABSOLUTE EOSINOPHILS 0.2 thou/uL (0.0-0.7); ABSOLUTE LYMPHOCYTES 1.4 thou/uL (0.8-5.3); ABSOLUTE MONOCYTES 0.6 thou/uL (0.0-1.2); ABSOLUTE NEUTROPHILS 2.5 thou/uL (1.6-8.1); BASOPHILS 1.1 %; EOSINOPHILS 4.4 %; HEMATOCRIT 33.7 % (37.0-47.0); HEMOGLOBIN 11.2 gm/dL (12.0-15.0); LYMPHOCYTES 28.7 %; MCHC 33.3 g/dL (28.0-37.0); MCV 83.9 fL (80.0-100.0); MONOCYTES 13.1 %; MPV 7.4 fl. (7.2-11.1); NUCLEATED RBCS 0 /100WBC; PLATELET COUNT* 215 thou/uL (150-400); POLYS 52.7 %; RBC 4.02 mil/uL (4.20-5.00); WBC 4.7 thou/uL (4.0-11.0)
[2021-01-16 09:00] LABS: ALKALINE PHOSPHATASE 63 U/L (46-116); ANION GAP 9 mmol/L (7-16); BUN 37 mg/dL (7-18); CALCIUM 9.4 mg/dL (8.5-10.1); CHLORIDE 104 mmol/L (98-107); CHOLESTEROL 156 mg/dL (<200); CO2 27 mmol/L (21-32); CREATININE 1.4 mg/dL (0.6-1.3); GLUCOSE 115 mg/dL (70-99); HDL CHOLESTEROL 55 mg/dL (>40); LDL CHOLESTEROL 77 mg/dL (<100); POTASSIUM 4.3 mmol/L (3.5-5.1); SGOT 21 U/L (15-37); SGPT 29 U/L (30-65); SODIUM 140 mmol/L (136-145); TC:HDL 2.8 Ratio (Not establshd); TOTAL BILIRUBIN 0.4 mg/dL (<0.1-1.0); TOTAL PROTEIN 7.1 g/dL (6.4-8.2); TRIGLYCERIDE 121 mg/dL (<150); VLDL 24 mg/dL (<40)
[2021-01-16 09:28] LABS: SERUM ASSESSMENT Clear
== END ==
LOC: M.LAB 08:26
PROVIDERS: ATTEND Family Medicine
DX: I12.9 Hypertensive chronic kidney disease with stage 1 through stage 4 chronic kidney disease, or unspecified chronic kidney disease (principal); E11.22 Type 2 diabetes mellitus with diabetic chronic kidney disease; N18.30 Chronic kidney disease, stage 3 unspecified; Z68.42 Body mass index [BMI] 45.0-49.9, adult

== ENCOUNTER → 2021-01-25 | Outpatient (CLI) | payer OTHER ==
[2021-01-25 08:35] LABS: CALCIUM 9.3 mg/dL (8.5-10.1); CREATININE 1.4 mg/dL (0.6-1.3); PHOSPHORUS* 4.1 mg/dL (2.5-4.9)
[2021-01-25 09:20] LABS: % SATURATION 13 % (20-39); IRON 50 ug/dL (50-175)
== END ==
LOC: M.LAB 07:47
PROVIDERS: ATTEND Internal Medicine Nephrology
DX: N18.32 Chronic kidney disease, stage 3b (principal)

== ENCOUNTER → 2021-03-01 | Outpatient (CLI) | payer OTHER | LOC: M.LAB 07:59 | PROVIDERS: ATTEND Family Medicine | DX: Z20.822 Contact with and (suspected) exposure to COVID-19 (principal) ==

== ENCOUNTER → 2021-07-18 | Outpatient (CLI) | payer OTHER | LOC: M.ULTRA 07:30 → M.RAD 08:00 | PROVIDERS: ATTEND Family Medicine | DX: Z12.31 Encounter for screening mammogram for malignant neoplasm of breast (principal); M79.89 Other specified soft tissue disorders ==

== ENCOUNTER → 2021-07-21 | Outpatient (CLI) | payer OTHER | LOC: M.ULTRA 07-18 13:00 | PROVIDERS: ATTEND Family Medicine | DX: M79.89 Other specified soft tissue disorders (principal) ==